=== PATIENT | female | born 1955 | race Asian ===

== ENCOUNTER → 2020-07-31 | Outpatient (CLI) | payer MEDICARE, OTHER ==
[~2020-07-31] MED LIST: DIATRIZOATE MEGL/DIATRIZOA SOD 30 ML BTL PO ONE; IOPAMIDOL 370 MG/ML 200 ML INFUS..BTL INJ ONE; SODIUM CHLORIDE 0.9% 50ML 50 ML ONE
[2020-07-31 12:46] LABS: BLOOD UREA NITROGEN 8 mg/dL (7-26); BUN/CREATININE RATIO 13 (6-25); CREATININE, SERUM 0.64 mg/dL (0.57-1.11); EST GLOMERULAR FILTRATION RATE > 60 ML/MIN (60-)
--- NOTE | 2020-07-31 13:37 | Diagnostic Imaging Report ---
CT of the abdomen and pelvis with contrast TECHNIQUE: CT of the abdomen and pelvis WITH intravenous contrast and WITH oral contrast. Dose modulation, iterative reconstruction, and/or weight-based adjustment of the mA/kV was utilized to reduce the radiation dose to as low as reasonably achievable. IV CONTRAST: 100 mL of Isovue-370 ORAL CONTRAST: Gastrografin RADIATION DOSE: Total DLP: 217 mGy*cm COMPLICATIONS: None INDICATION: ^[id number] ^[id number] ^DIVERTICULITIS OF INTESTINE. COMPARISON: None. FINDINGS: LOWER THORAX: Unremarkable. HEPATOBILIARY: No focal hepatic lesions. Gallbladder is surgically absent. No biliary ductal dilatation. SPLEEN: No splenomegaly. PANCREAS: No focal masses or ductal dilatation. ADRENALS: No adrenal nodules. KIDNEYS/URETERS: Symmetric cortical enhancement without hydronephrosis, suspicious mass or perinephric fluid collection. Ureters are not dilated. PELVIC ORGANS/BLADDER: Urinary bladder is unremarkable. Uterus and ovaries are unremarkable. Prominent periuterine vessels are noted with a prominent left gonadal vein, nonspecific. PERITONEUM/RETROPERITONEUM: No free air or fluid. LYMPH NODES: No lymphadenopathy. VESSELS: Unremarkable. GI TRACT: Oral contrast is identified within the decompressed stomach, small bowel loops extending to the right lower quadrant. Contrast is not identified within the colon. Negative for small bowel obstruction. Normal appendix is noted. Moderate colonic stool retention is noted. No significant diverticulosis of the colon is noted. A few scattered diverticuli of the sigmoid colon are noted. BONES AND SOFT TISSUES: No acute osseous abnormality. Mild to moderate degenerative changes of the spine are noted. No suspicious lytic or blastic lesion. Soft tissues are unremarkable. IMPRESSION: 1. No significant diverticulosis or diverticulitis. A few scattered diverticuli of the sigmoid colon are noted. Moderate colonic stool retention is noted, correlate for constipation. Negative for obstruction. 2. Prominent periuterine vessels with prominent left gonadal vein can be seen in patients with pelvic congestion syndrome. Signed by: Akhil Herring MD on 07/31/2020 1:33 PM
== END ==
LOC: CT 11:29
PROVIDERS: ATTEND Internal Medicine
DX: K57.92 Diverticulitis of intestine, part unspecified, without perforation or abscess without bleeding (principal)
CPT/HCPCS: 36415; 74177; 82565; 84520; Q9967